=== PATIENT | male | born 1990 | race American Indian/Alaskan Native ===

== ENCOUNTER 2019-01-07 11:48 | Emergency (ER) | payer OTHER ==
--- NOTE | 2019-01-07 11:57 | Event Note ---
ED Screening Note Date of service: 01/07/19 Time: 11:55 ED Screening Note: 28 y o male presents to Ed cc of vomitting, fever x 4 days denies abd pain This initial assessment/diagnostic orders/clinical plan/treatment(s) is/are subject to change based on patients health status, clinical progression and re- assessment by fellow clinical providers in the ED. Further treatment and workup at subsequent clinical providers discretion. Patient/guardian urged not to elope from the ED as their condition may be serious if not clinically assessed and managed. Initial orders include: cbc,lipase bmp, ua
[2019-01-07 12:32] LABS: BUN/Creatinine Ratio 10; Blood Urea Nitrogen 10 mg/dL (9-20); Calcium 9.4 mg/dL (8.4-10.2); Hemolysis Index 0
[2019-01-07 12:38] LABS: Basophils % (Auto) 0.2 % (0.0-1.8); Eosinophils # (Auto) 0.1 K/mm3 (0.0-0.4); Eosinophils % (Auto) 0.8 % (0.0-4.3); Hematocrit 39.7 % (35.5-45.6); Hemoglobin 13.6 gm/dl (11.8-15.2); Lymphocytes # (Auto) 1.3 K/mm3 (1.2-5.4); Lymphocytes % (Auto) 12.1 % (13.4-35.0); Mean Corpuscular HGB Conc 34 % (32-34); Mean Corpuscular Volume 96 fl (84-94); Monocytes # (Auto) 1.1 K/mm3 (0.0-0.8); Monocytes % (Auto) 10.2 % (0.0-7.3); Platelet Count 180 K/mm3 (140-440); Red Blood Count 4.13 M/mm3 (3.65-5.03); Red Cell Distribution Width 13.8 % (13.2-15.2)
[2019-01-07 12:48] LABS: Bilirubin,Urine NEG (Negative); Blood,Urine NEG (Negative); Color,Urine Yellow (Yellow); Mucus,Urine 3+ /HPF
[2019-01-07] MEDS ORDERED: NACL 0.9% 1000 ML 1,000 ML IV ONE (12:53)
[2019-01-07] MEDS ORDERED: ZOFRAN IV ONE (12:53)
--- NOTE | 2019-01-07 13:42 | XRay Report ---
CHEST 2 VIEWS, 01/07/2019 INDICATION: Cough for one week COMPARISON: None FINDINGS: Support devices: None Heart: The cardiac silhouette is upper limits of normal in size. The pulmonary vascularity appears gr ossly normal. Lungs/pleura: There is no evidence of focal airspace disease or significant pleural effusion. Additional findings: No evidence of acute additional finding. IMPRESSION: 1. The cardiac silhouette is upper limits of normal in size. Signer Name: Shavonne Gagnon MD Signed: 01/07/2019 1:37 PM Workstation Name: [id number]
--- NOTE | 2019-01-07 13:45 | Emergency Department Report ---
ED N/V/D HPI - General Chief complaint: Nausea/Vomiting/Diarrhea Stated complaint: VOMITING/NOSE BLEED Time Seen by Provider: 01/07/19 11:54 Source: patient Mode of arrival: Ambulatory Limitations: No Limitations - History of Present Illness Initial comments: 28-year-old male with a past medical history of HIV presents to the hospital complaining of generalized body aches, headache, subjective fevers, cough productive of sputum, intermittent nausea and vomiting, and diarrhea 2 days. Patient has also had intermittent epistaxis. Patient does take antiretrovirals and to his knowledge a few months ago with viral load undetectable. Patient recently returned from a cruise from the [facility] on December 26 and recently flew here from [place]. He's had 2 episodes of vomiting in the last 4 days. The patient said "a little diarrhea". He denies any sore throat or chest pain. He's taking [id number] medication including Motrin, Tylenol, and Mucinex DM. Patient states she's been trying to stay hydrated but her 60s appetite and feeling lightheaded with standing. - Related Data Previous Rx's Medication Instructions Recorded Last Taken Type Azithromycin [Zithromax Z-CLIFTON] 1 dose PO DAILY 5 Days tab 01/07/19 Unknown Rx Benzonatate [Tessalon Perles] 100 mg PO Q8HR PRN #20 capsule 01/07/19 Unknown Rx Ibuprofen [Motrin] 800 mg PO Q8HR PRN #30 tablet 01/07/19 Unknown Rx Promethazine [Phenergan] 25 mg PO Q6HR PRN #20 tab 01/07/19 Unknown Rx Allergies Allergy/AdvReac Type Severity Reaction Status Date / Time No Known Allergies Allergy Unverified 01/07/19 11:53 ED Review of Systems ROS: Stated complaint: VOMITING/NOSE BLEED Other details as noted in HPI Comment: All other systems reviewed and negative ED Past Medical Hx - Past Medical History Previous Medical History?: Yes Hx HIV: Yes - Surgical History Past Surgical History?: No - Social History Smoking Status: Current Every Day Smoker - Medications Home Medications: Home Medications Medication Instructions Recorded Confirmed Last Taken Type Azithromycin [Zithromax Z-CLIFTON] 1 dose PO DAILY 5 Days tab 01/07/19 Unknown Rx Benzonatate [Tessalon Perles] 100 mg PO Q8HR PRN #20 capsule 01/07/19 Unknown Rx Ibuprofen [Motrin] 800 mg PO Q8HR PRN #30 tablet 01/07/19 Unknown Rx Promethazine [Phenergan] 25 mg PO Q6HR PRN #20 tab 01/07/19 Unknown Rx ED Physical Exam - General Limitations: No Limitations - Other Other exam information: Normal: No acute distress Head: Atraumatic Eyes: Normal appearance, pupils equally reactive to light, extraocular movements intact ENT: Moist mucous membranes, no rash, no exudate Neck: Normal appearance, no midline cervical tenderness, no meningismus Chest: Clear to auscultation bilaterally, no wheezes, rales, crackles Cardiovascular: Regular rate and rhythm Abdomen: Soft, nontender, nondistended, no rebound or guarding, normal bowel sounds Back: Normal inspection Extremity: Normal appearance, full range of motion Neuro: Alert and oriented 3, speech normal, no gross motor sensory deficit Psych: Appropriate Skin: No rash ED Course Vital Signs 01/07/19 01/07/19 11:55 12:49 Temperature 98.4 F Pulse Rate 76 Respiratory 18 Rate Blood Pressure 143/75 O2 Sat by Pulse 100 Oximetry ED Medical Decision Making - Lab Data Result diagrams: 01/07/19 12:03 01/07/19 12:03 Lab Results 01/07/19 01/07/19 01/07/19 Range/Units 12:03 12:03 12:03 WBC 11.0 (4.5-11.0) K/mm3 RBC 4.13 (3.65-5.03) M/mm3 Hgb 13.6 (11.8-15.2) gm/dl Hct 39.7 (35.5-45.6) % MCV 96 H (84-94) fl MCH 33 H (28-32) pg MCHC 34 (32-34) % RDW 13.8 (13.2-15.2) % Plt Count 180 (140-440) K/mm3 Lymph % (Auto) 12.1 L (13.4-35.0) % Stewart % (Auto) 10.2 H (0.0-7.3) % Eos % (Auto) 0.8 (0.0-4.3) % Baso % (Auto) 0.2 (0.0-1.8) % Lymph # 1.3 (1.2-5.4) K/mm3 Stewart # 1.1 H (0.0-0.8) K/mm3 Eos # 0.1 (0.0-0.4) K/mm3 Baso # 0.0 (0.0-0.1) K/mm3 Seg Neutrophils % 76.7 H (40.0-70.0) % Seg Neutrophils # 8.5 H (1.8-7.7) K/mm3 Sodium 135 L (137-145) mmol/L Potassium 3.6 (3.6-5.0) mmol/L Chloride 98.6 (98-107) mmol/L Carbon Dioxide 23 (22-30) mmol/L Anion Gap 17 mmol/L BUN 10 (9-20) mg/dL Creatinine 1.0 (0.8-1.5) mg/dL Estimated GFR > 60 ml/min BUN/Creatinine Ratio 10 % Glucose 102 H (75-100) mg/dL Calcium 9.4 (8.4-10.2) mg/dL Lipase 10 L (13-60) units/L Urine Color (Yellow) Urine Turbidity (Clear) Urine pH (5.0-7.0) Ur Specific Conrad (1.003-1.030) Urine Protein (Negative) mg/dL Urine Glucose (UA) (Negative) mg/dL Urine Ketones (Negative) mg/dL Urine Blood (Negative) Urine Nitrite (Negative) Urine Bilirubin (Negative) Urine Urobilinogen (<2.0) mg/dL Ur Leukocyte Esterase (Negative) Urine WBC (Auto) (0.0-6.0) /HPF Urine RBC (Auto) (0.0-6.0) /HPF Urine Mucus /HPF Plasma/Serum Alcohol < 0.01 (0-0.07) % 01/07/19 Range/Units Unknown WBC (4.5-11.0) K/mm3 RBC (3.65-5.03) M/mm3 Hgb (11.8-15.2) gm/dl Hct (35.5-45.6) % MCV (84-94) fl MCH (28-32) pg MCHC (32-34) % RDW (13.2-15.2) % Plt Count (140-440) K/mm3 Lymph % (Auto) (13.4-35.0) % Stewart % (Auto) (0.0-7.3) % Eos % (Auto) (0.0-4.3) % Baso % (Auto) (0.0-1.8) % Lymph # (1.2-5.4) K/mm3 Stewart # (0.0-0.8) K/mm3 Eos # (0.0-0.4) K/mm3 Baso # (0.0-0.1) K/mm3 Seg Neutrophils % (40.0-70.0) % Seg Neutrophils # (1.8-7.7) K/mm3 Sodium (137-145) mmol/L Potassium (3.6-5.0) mmol/L Chloride (98-107) mmol/L Carbon Dioxide (22-30) mmol/L Anion Gap mmol/L BUN (9-20) mg/dL Creatinine (0.8-1.5) mg/dL Estimated GFR ml/min BUN/Creatinine Ratio % Glucose (75-100) mg/dL Calcium (8.4-10.2) mg/dL Lipase (13-60) units/L Urine Color Yellow (Yellow) Urine Turbidity Clear (Clear) Urine pH 6.0 (5.0-7.0) Ur Specific Conrad 1.029 (1.003-1.030) Urine Protein 30 mg/dl (Negative) mg/dL Urine Glucose (UA) Neg (Negative) mg/dL Urine Ketones Tr (Negative) mg/dL Urine Blood Neg (Negative) Urine Nitrite Neg (Negative) Urine Bilirubin Neg (Negative) Urine Urobilinogen 2.0 (<2.0) mg/dL Ur Leukocyte Esterase Neg (Negative) Urine WBC (Auto) 2.0 (0.0-6.0) /HPF Urine RBC (Auto) 10.0 (0.0-6.0) /HPF Urine Mucus 3+ /HPF Plasma/Serum Alcohol (0-0.07) % - Radiology Data Radiology results: report reviewed CHEST 2 VIEWS, 01/07/2019 INDICATION: Cough for one week COMPARISON: None FINDINGS: Support devices: None Heart: The cardiac silhouette is upper limits of normal in size. The pulmonary vascularity appears grossly normal. Lungs/pleura: There is no evidence of focal airspace disease or significant pleural effusion. Additional findings: No evidence of acute additional finding. IMPRESSION: 1. The cardiac silhouette is upper limits of normal in size. - Medical Decision Making sx improved with ed tx toradol and 1 ns, zofran viral syndrome with bronchitis likely viral, will be covered with zpack for atypical pneumonia. Patient educated that antibiotics would not help if indeed viral f/u advised with ID md - Differential Diagnosis viral syndrome, pneumonia, bronchitis, UTI, coagulopathy Critical Care Time: No Critical care attestation.: If time is entered above; I have spent that time in minutes in the direct care of this critically ill patient, excluding procedure time. ED Disposition Clinical Impression: Viral syndrome, Dehydration, HIV disease Disposition: TO HOME OR SELFCARE Is pt being admited?: No Does the pt Need Aspirin: No Condition: Stable Instructions: Viral Syndrome (ED) Additional Instructions: Take your medications as prescribed. Follow-up with your doctor or the clinic/doctor provided. Return if symptoms worsen. Prescriptions: Ibuprofen [Motrin] 800 mg PO Q8HR PRN #30 tablet PRN Reason: Pain , Severe (7-10) Promethazine [Phenergan] 25 mg PO Q6HR PRN #20 tab PRN Reason: Nausea Benzonatate [Tessalon Perles] 100 mg PO Q8HR PRN #20 capsule PRN Reason: Cough Azithromycin [Zithromax Z-CLIFTON] 1 dose PO DAILY 5 Days tab Referrals: PRIMARY CARE,MD [Primary Care Provider] - 3-5 Days IDMD [Other] - 3-5 Days Forms: Work/School Release Form(ED) Time of Disposition: 15:07
[2019-01-07] MEDS ORDERED: TORADOL IV ONE (14:49)
[2019-01-07 16:06] VITALS: BP 118/65
== END 2019-01-07 16:06 | disposition home or self-care (01) ==
LOC: ED 11:48
DX: E86.0 Dehydration (principal); B34.9 Viral infection, unspecified; B20 Human immunodeficiency virus [HIV] disease; R11.2 Nausea with vomiting, unspecified; F17.200 Nicotine dependence, unspecified, uncomplicated; Z79.899 Other long term (current) drug therapy; Z79.1 Long term (current) use of non-steroidal anti-inflammatories (NSAID)
CPT/HCPCS: 36415; 71046; 80048; 81001; 83690; 85025; 96361; 96374; 96375; 99284; J1885; J2405; J7030; 80320; G0480